=== PATIENT | male | born 1960 | race Caucasian/White ===

== ENCOUNTER 2016-10-21 00:17 | Emergency (ER) | payer OTHER | END 2016-10-21 00:43 | disposition E | DRG 298 | LOC: EDBD 00:17 → ED 00:17 | DX: I46.9 Cardiac arrest, cause unspecified (principal); Y93.I9 Activity, other involving external motion; V86.59XA Driver of other special all-terrain or other off-road motor vehicle injured in nontraffic accident, initial encounter; Y92.488 Other paved roadways as the place of occurrence of the external cause ==